=== PATIENT | female | born 1945 | race Hispanic/Latino ===

== ENCOUNTER 2025-04-14 11:43 | Outpatient (CLI) | payer MEDICARE | END 2025-04-14 11:44 | disposition home or self-care (01) | LOC: CSHRAD 11:43 | PROVIDERS: ATTEND Student in an Organized Health Care Education/Training Program | DX: M54.59 Other low back pain (principal); M89.29 Other disorders of bone development and growth, multiple sites; M47.818 Spondylosis without myelopathy or radiculopathy, sacral and sacrococcygeal region; M47.816 Spondylosis without myelopathy or radiculopathy, lumbar region | CPT/HCPCS: 72100; 72220 ==

== ENCOUNTER 2025-07-30 09:46 | Outpatient (CLI) | payer MEDICARE, BC | END 2025-07-30 09:47 | disposition home or self-care (01) | LOC: CJX 09:46 | PROVIDERS: ATTEND Orthopaedic Surgery | DX: M48.062 Spinal stenosis, lumbar region with neurogenic claudication (principal); M47.26 Other spondylosis with radiculopathy, lumbar region; Z00.00 Encounter for general adult medical examination without abnormal findings; E11.9 Type 2 diabetes mellitus without complications; R30.0 Dysuria; Z79.899 Other long term (current) drug therapy | CPT/HCPCS: 36415; 72148; 80053; 81001; 82043; 83036; 85025; 87077; 87086; 87186 ==